=== PATIENT | male | born 1980 | race Caucasian/White ===

== ENCOUNTER 2017-11-18 00:35 | Emergency (ER) | payer OTHER ==
[~2017-11-18] VITALS: Ht 195.6 cm; Wt 136.1 kg
[2017-11-18 00:57] VITALS: BP 165/109
[2017-11-18] MEDS ORDERED: IBUPROFEN 600 MG TABLET PO ONE ×2 (02:00→02:06)
== END 2017-11-18 02:17 | disposition home or self-care (01) ==
LOC: ER 00:38
DX: S00.03XA Contusion of scalp, initial encounter (principal); V49.59XA Passenger injured in collision with other motor vehicles in traffic accident, initial encounter; Y93.89 Activity, other specified; Y92.413 State road as the place of occurrence of the external cause; Y99.8 Other external cause status
CPT/HCPCS: 70450-TC; A4606; Z7610